=== PATIENT | male | born 1975 | race Caucasian/White ===

== ENCOUNTER 2022-08-26 16:56 | Inpatient (IN) | payer MEDICAID, OTHER ==
[~2022-08-26] VITALS: Ht 182.9 cm; Wt 104.5 kg
[~2022-08-26 16:56] MED LIST: ASPI-41 PO; LISI1TAB51 PO
[2022-08-26 19:31] LABS: BASOPHILS # (AUTO) 0.3 X10'3 (0-0.2); BASOPHILS % (AUTO) 2.5 % (0-1); EOSINOPHILS # (AUTO) 0.2 X10'3 (0-0.9); EOSINOPHILS % (AUTO) 1.9 % (0-6); HEMOGLOBIN 17.1 g/dl (14.0-17.9); LYMPHOCYTES # (AUTO) 3.5 X10'3 (1.1-4.8); LYMPHOCYTES % (AUTO) 33.4 % (21-51); MEAN CORPUSCULAR HGB CONC 36.3 g/dL (33.0-36.5); MEAN CORPUSCULAR VOLUME 96.2 FL (78-98); MEAN PLATELET VOLUME 9.9 FL (7.4-10.4); MONOCYTES # (AUTO) 1.3 X10'3 (0-0.9); MONOCYTES % (AUTO) 12.9 % (2-12); NEUTROPHILS # (AUTO) 5.2 X10'3 (1.8-7.7); NEUTROPHILS % (AUTO) 49.3 % (42-75); PLATELET COUNT 269 X10'3 (140-440); RED BLOOD COUNT 4.89 X10'6 (4.70-6.10); RED CELL DISTRIBUTION WIDTH 13.9 % (11.5-14.5); WHITE BLOOD COUNT 10.4 X10'3 (4.5-11.0)
[2022-08-26 20:00] LABS: ANION GAP 15 (8-16); BLOOD UREA NITROGEN 36 MG/DL (7-18); BUN/CREATININE RATIO 21.2 (10.0-20.0); CHLORIDE 98 MMOL/L (99-107); GLUCOSE 105 MG/DL (70-104); POTASSIUM 4.1 MMOL/L (3.5-5.1); SODIUM 134 MMOL/L (135-145); TOTAL CARBON DIOXIDE 21.2 MMOL/L (24-32); eGFR 43 ML/MIN
[2022-08-26 20:02] LABS: CALCIUM 10.3 MG/DL (8.5-10.1); MAGNESIUM 1.7 MG/DL (1.5-2.4)
[2022-08-26 20:03] LABS: ALANINE AMINOTRANSFERASE 62 U/L (12-78); ALBUMIN 3.9 G/DL (3.4-5.0); ALKALINE PHOSPHATASE 49 IU/L (46-116); ASPARTATE AMINO TRANSFERASE 59 U/L (10-37); BILIRUBIN,TOTAL 0.5 MG/DL (0.1-1.0)
[2022-08-26 20:07] LABS: PLATELET ESTIMATE NORMAL; SMUDGE CELLS FEW; TOTAL CELLS COUNTED 100
[2022-08-26 20:08] LABS: TEAR DROP CELLS FEW
[2022-08-26] MEDS ORDERED: heparin 10,000 units/1 ML INJ IV ONE ×2 (20:10→20:15)
[2022-08-26] MEDS ORDERED: aspirin 81mg tab.chew PO ONE (20:10)
[2022-08-26] MEDS ORDERED: metoprolol tartrate 1mg/ml inj IV ONE (20:15)
[2022-08-26] MEDS ORDERED: iohexol 350MG/ML 100ml bottle IV ONE (20:16)
[2022-08-26] MEDS: heparin 25,000 UNIT/250ml bag 250 ML IV PRN (22:45)
[2022-08-26 23:33] LABS: PARTIAL THROMBOPLASTIN TIME 39.5 SECONDS (24.5-30.9); PROTHROMBIN TIME 12.1 SECONDS (9-12)
[2022-08-27] VITALS (13 sets, daily range): BP systolic 17–178; BP diastolic 92–117
[2022-08-27] MEDS ORDERED: mag hydrox/Alum hydrox/simeth 30ml oral suspension PO PRN (00:20)
[2022-08-27] MEDS ORDERED: potassium Cl 20 mEq SR tablet PO PRN ×2 (00:20)
[2022-08-27] MEDS ORDERED: magnesium Cl slow-release 64mg tablet PO PRN (00:20)
[2022-08-27] MEDS ORDERED: ondansetron/PF 4mg/2ml inj IV PRN (00:20)
[2022-08-27] MEDS ORDERED: magnesium 4gm in 100ml NS 100 ML IV PRN (00:20)
[2022-08-27] MEDS ORDERED: magnesium hydroxide 30ml (MOM) UD suspension PO PRN (00:20)
[2022-08-27] MEDS ORDERED: PERFLUTREN PROTEIN-A MICROSPHR (Optison) 0.22 MG/ML 3ML VIAL IV PRN (00:20)
[2022-08-27] MEDS ORDERED: acetaminophen 325mg tablet PO PRN (00:20)
[2022-08-27] MEDS ORDERED: potassium Cl 40MEQ/1/2NS 520ml 520 ML IV PRN (00:20)
[2022-08-27] MEDS ORDERED: sodium bicarbonate (8.4%) inj. 100 MEQ in dextrose 5%-water 1,000 ML IV SCH (00:25)
[2022-08-27] MEDS ORDERED: LORazepam 2 mg/ml vial IV PRN (00:25)
[2022-08-27] MEDS ORDERED: metoprolol tartrate 50mg tablet PO ONE (00:25)
[2022-08-27] MEDS ORDERED: METO-411 PO (00:43)
[2022-08-27] MEDS: metoprolol tartrate 1mg/ml inj IV SCH ×3 (01:05→02:17)
[2022-08-27] MEDS: heparin 10,000 units/1 ML INJ IV PRN ×2 (02:22→14:42)
[2022-08-27] MEDS: heparin 25,000 UNIT/250ml bag 250 ML IV PRN (02:23)
[2022-08-27] MEDS ORDERED: metoprolol tartrate 1mg/ml inj IV ONE (04:50)
--- NOTE | 2022-08-27 06:30 | NUR ---
Problems reprioritized. Patient report given, questions answered & plan of care reviewed with Oumou MATHIS.
[2022-08-27 07:02] LABS: BASOPHILS # (AUTO) 0.2 X10'3 (0-0.2); EOSINOPHILS # (AUTO) 0.2 X10'3 (0-0.9); HEMOGLOBIN 15.2 g/dl (14.0-17.9)
[2022-08-27 07:04] LABS: BASOPHILS % (AUTO) 2.4 % (0-1); EOSINOPHILS % (AUTO) 1.9 % (0-6); HEMATOCRIT 43.2 % (42.0-52.0); LYMPHOCYTES # (AUTO) 1.4 X10'3 (1.1-4.8); LYMPHOCYTES % (AUTO) 14.7 % (21-51); MEAN CORPUSCULAR HEMOGLOBIN 33.5 PG (27.0-31.0); MEAN CORPUSCULAR HGB CONC 35.2 g/dL (33.0-36.5); MEAN CORPUSCULAR VOLUME 95.4 FL (78-98); MEAN PLATELET VOLUME 7.7 FL (7.4-10.4); MONOCYTES # (AUTO) 1.1 X10'3 (0-0.9); MONOCYTES % (AUTO) 11.1 % (2-12); NEUTROPHILS # (AUTO) 6.9 X10'3 (1.8-7.7); NEUTROPHILS % (AUTO) 69.9 % (42-75); PLATELET COUNT 243 X10'3 (140-440); RED BLOOD COUNT 4.53 X10'6 (4.70-6.10); RED CELL DISTRIBUTION WIDTH 13.5 % (11.5-14.5); WHITE BLOOD COUNT 9.8 X10'3 (4.5-11.0)
--- NOTE | 2022-08-27 07:04 | NUR ---
Paged EKG [id number]. Brendan. STAT EKG for possible heart cath.
--- NOTE | 2022-08-27 07:04 | NUR ---
Rec'd call from Dr Rich. he wants a ekg for poss heart cath. JK, [employer] to evaluate later today. Keep NPO for now.
[2022-08-27 07:17] LABS: MAGNESIUM 1.9 MG/DL (1.5-2.4)
[2022-08-27 07:22] LABS: POTASSIUM 3.9 MMOL/L (3.5-5.1)
[2022-08-27] MEDS: docusate sod 100mg capsule PO SCH ×2 (07:39→20:00)
[2022-08-27 07:46] LABS: TOTAL CELLS COUNTED 100
[2022-08-27 07:48] LABS: LARGE PLATELETS FEW; PLATELET ESTIMATE NORMAL
[2022-08-27] MEDS ORDERED: LISI1TAB51 PO (07:49)
[2022-08-27] MEDS: K and/or MAG REPLACEMENT MC SCH ×2 (08:00→20:00)
[2022-08-27] MEDS ORDERED: losartan 50mg tablet PO SCH (08:25)
[2022-08-27] MEDS ORDERED: metoprolol succinate 25mg (24-HOUR) SR. Tablet PO SCH ×2 (08:25→08:35)
[2022-08-27] MEDS: aspirin 81mg tab.chew PO SCH ×2 (08:30→09:18)
[2022-08-27] MEDS ORDERED: HYDROchlorothiazide 12.5mg capsule PO SCH (08:42)
[2022-08-27] MEDS: atorvastatin 20mg tablet PO SCH (09:18)
[2022-08-27] MEDS ORDERED: acetylcysteine 200 MG/ml 4ml vial PO SCH (09:50)
[2022-08-27 10:04] LABS: CHOL/HDL RATIO 9.4 (0.00-4.99); CHOLESTEROL 462 MG/DL (0-200); HDL CHOLESTEROL 49 MG/DL (35-60); LDL CHOLESTEROL 133 MG/DL (50-100)
[2022-08-27 10:11] LABS: ALBUMIN 3.5 G/DL (3.4-5.0); ANION GAP 16 (8-16); BLOOD UREA NITROGEN 35 MG/DL (7-18); BUN/CREATININE RATIO 19.9 (10.0-20.0); CALCIUM 9.5 MG/DL (8.5-10.1); CHLORIDE 98 MMOL/L (99-107); CREATININE 1.76 MG/DL (0.60-1.10); GLUCOSE 116 MG/DL (70-104); SODIUM 136 MMOL/L (135-145); TOTAL CARBON DIOXIDE 21.6 MMOL/L (24-32); eGFR 42 ML/MIN
[2022-08-27 10:14] LABS: TRIGLYCERIDES 1135 MG/DL (20-135)
[2022-08-27] MEDS ORDERED: normal saline 1000ml 1,000 ML IV SCH (11:00)
[2022-08-27] MEDS: fenofibrate 145mg tablet PO SCH (11:39)
[2022-08-27] MEDS ORDERED: nitroGLYCERIN-Tridil 50MG/D5W 250 ML IV ONE (16:01)
[2022-08-27] MEDS ORDERED: midazolam 1 mg/ML 2ml injection ONE (16:02)
[2022-08-27] MEDS ORDERED: fentaNYL/PF 50MCG/1 ML 2ML syringe ONE (16:02)
[2022-08-27] MEDS ORDERED: verapamil 2.5 mg/ml inj IV ONE (16:02)
[2022-08-27] MEDS ORDERED: iohexol 350MG/ML 100ml bottle IV ONE ×2 (16:02→16:53)
[2022-08-27] MEDS ORDERED: heparin 1,000unit/ml 10ml vial 10 ML ONE (16:02)
[2022-08-27] MEDS ORDERED: LIDOcaine 1% (10mg/ml) 2ml vial ONE (16:02)
--- NOTE | 2022-08-27 16:19 | NUR ---
pt to home performance laborer
[2022-08-27] MEDS ORDERED: aspirin 325mg tablet ONE (16:50)
[2022-08-27] MEDS ORDERED: ticagrelor 90mg tablet ONE (16:50)
[2022-08-27] MEDS: normal saline 1000ml 1,000 ML IV SCH ×3 (17:47→21:12)
[2022-08-27] MEDS ORDERED: HYDROcodone/acetaminophen 5mg/325mg tablet PO PRN (18:00)
[2022-08-27] MEDS ORDERED: HYDROcodone/acetaminophen 10/325mg tab PO PRN (18:00)
[2022-08-27] MEDS: carVEDilol 12.5mg tablet PO SCH (18:04)
[2022-08-27] MEDS: lisinopril 20mg tablet PO SCH (19:40)
[2022-08-28] VITALS: BP 138/111
[2022-08-28 04:00] VITALS: BP 153/95
--- NOTE | 2022-08-28 06:17 | NUR ---
Problems reprioritized. Patient report given, questions answered & plan of care reviewed with Renetta MATHIS.
[2022-08-28 07:44] LABS: BASOPHILS # (AUTO) 0.1 X10'3 (0-0.2); EOSINOPHILS # (AUTO) 0.1 X10'3 (0-0.9); EOSINOPHILS % (AUTO) 2.3 % (0-6); HEMATOCRIT 38.9 % (42.0-52.0); HEMOGLOBIN 13.5 g/dl (14.0-17.9); LYMPHOCYTES # (AUTO) 1.4 X10'3 (1.1-4.8); LYMPHOCYTES % (AUTO) 21.5 % (21-51); MEAN CORPUSCULAR HEMOGLOBIN 33.2 PG (27.0-31.0); MEAN CORPUSCULAR HGB CONC 34.6 g/dL (33.0-36.5); MEAN CORPUSCULAR VOLUME 95.8 FL (78-98); MEAN PLATELET VOLUME 7.8 FL (7.4-10.4); MONOCYTES # (AUTO) 0.6 X10'3 (0-0.9); MONOCYTES % (AUTO) 9.4 % (2-12); NEUTROPHILS # (AUTO) 4.2 X10'3 (1.8-7.7); NEUTROPHILS % (AUTO) 65.8 % (42-75); PLATELET COUNT 221 X10'3 (140-440); RED BLOOD COUNT 4.06 X10'6 (4.70-6.10); RED CELL DISTRIBUTION WIDTH 13.3 % (11.5-14.5); WHITE BLOOD COUNT 6.4 X10'3 (4.5-11.0)
[2022-08-28] MEDS ORDERED: ticagrelor 90mg tablet PO SCH (08:00)
[2022-08-28] MEDS ORDERED: non-formulary drug (Metoprolol Succinate 1 TAB) PO SCH (08:00)
[2022-08-28 08:15] LABS: CHOLESTEROL 415 MG/DL (0-200); LDL CHOLESTEROL 139 MG/DL (50-100); TOTAL CARBON DIOXIDE 22.9 MMOL/L (24-32)
[2022-08-28 09:06] LABS: ALANINE AMINOTRANSFERASE 45 U/L (12-78); ALBUMIN 3.1 G/DL (3.4-5.0); ALKALINE PHOSPHATASE 38 IU/L (46-116); ANION GAP 10 (8-16); ASPARTATE AMINO TRANSFERASE 43 U/L (10-37); BILIRUBIN,TOTAL 0.5 MG/DL (0.1-1.0); BLOOD UREA NITROGEN 24 MG/DL (7-18); BUN/CREATININE RATIO 16.9 (10.0-20.0); CALCIUM 8.4 MG/DL (8.5-10.1); CHLORIDE 104 MMOL/L (99-107); CREATININE 1.42 MG/DL (0.60-1.10); GLUCOSE 104 MG/DL (70-104); MAGNESIUM 1.7 MG/DL (1.5-2.4); SODIUM 137 MMOL/L (135-145); TOTAL PROTEIN 6.3 G/DL (6.4-8.2); eGFR 53 ML/MIN
[2022-08-28 09:09] LABS: CHOL/HDL RATIO 12.2 (0.00-4.99); HDL CHOLESTEROL 34 MG/DL (35-60); TRIGLYCERIDES 1899 MG/DL (20-135)
[2022-08-28] MEDS: carVEDilol 12.5mg tablet PO SCH (09:50)
[2022-08-28] MEDS: atorvastatin 20mg tablet PO SCH (09:51)
[2022-08-28] MEDS: aspirin 81mg tab.chew PO SCH (09:52)
[2022-08-28] MEDS: fenofibrate 145mg tablet PO SCH (09:52)
[2022-08-28 09:55] VITALS: BP_SYST 165
[2022-08-28] MEDS: lisinopril 20mg tablet PO SCH (09:55)
[2022-08-28] MEDS ORDERED: CARV-50 PO (12:18)
[2022-08-28] MEDS ORDERED: FENO145T25 PO (12:18)
[2022-08-28] MEDS ORDERED: ATOR20TA66 PO (12:18)
[2022-08-28] MEDS ORDERED: MULT-1085 PO (12:18)
[2022-08-28] MEDS ORDERED: ASPI81TA53 PO (12:18)
[2022-08-28] MEDS ORDERED: THIA50TA10 PO (12:18)
[2022-08-28] MEDS ORDERED: FOLI0.4T6 PO (12:18)
[2022-08-28] MEDS ORDERED: TICA90TA PO (12:20)
[2022-08-28] MEDS ORDERED: ALBU6.7H14 INH (14:47)
--- NOTE | 2022-08-28 17:56 | NUR ---
Pt stable for discharge per Dr. Flores and cardiology. All discharge instructions reviewed with patient and all questions answered, pt verbalized understanding. New medications e-scripted to tonia mccain. PIV discontinued, cannula intact. Tele discontinued. All belongings collected and sent with patient. Wheeled to lobby via nursing staff and picked up by spouse.
[2022-08-29] MEDS ORDERED: LORazepam 2 mg/ml vial IV PRN (00:25)
[2022-08-29] MEDS ORDERED: LORazepam 1 MG tablet PO PRN (00:25)
[2022-08-31] MEDS ORDERED: LORazepam 1 MG tablet PO PRN (00:25)
[2022-08-31] MEDS ORDERED: thiamine 100mg tablet PO SCH (08:00)
== END 2022-08-28 12:20 | disposition home or self-care (01) | DRG 174 ==
LOC: ER 16:57 → ED HOLD 08-27 00:22 → PCU 3S 08-27 02:44
PROVIDERS: ADMIT Internal Medicine; ATTEND Family Medicine
PROC: B32T1ZZ Computerized Tomography (CT Scan) of Left Pulmonary Artery using Low Osmolar Contrast (ICD-10-PCS; 2022-08-26)
PROC: B3201ZZ Computerized Tomography (CT Scan) of Thoracic Aorta using Low Osmolar Contrast (ICD-10-PCS; 2022-08-26)
PROC: B32S1ZZ Computerized Tomography (CT Scan) of Right Pulmonary Artery using Low Osmolar Contrast (ICD-10-PCS; 2022-08-26)
PROC: 027034Z Dilation of Coronary Artery, One Artery with Drug-eluting Intraluminal Device, Percutaneous Approach (ICD-10-PCS; principal; 2022-08-27)
PROC: 4A023N7 Measurement of Cardiac Sampling and Pressure, Left Heart, Percutaneous Approach (ICD-10-PCS; 2022-08-27)
PROC: B2111ZZ Fluoroscopy of Multiple Coronary Arteries using Low Osmolar Contrast (ICD-10-PCS; 2022-08-27)
DX: I21.4 Non-ST elevation (NSTEMI) myocardial infarction (principal); N17.0 Acute kidney failure with tubular necrosis; F10.20 Alcohol dependence, uncomplicated; G89.29 Other chronic pain; I12.9 Hypertensive chronic kidney disease with stage 1 through stage 4 chronic kidney disease, or unspecified chronic kidney disease; F12.90 Cannabis use, unspecified, uncomplicated; I25.10 Atherosclerotic heart disease of native coronary artery without angina pectoris; R79.89 Other specified abnormal findings of blood chemistry; F11.20 Opioid dependence, uncomplicated; M17.0 Bilateral primary osteoarthritis of knee; N18.30 Chronic kidney disease, stage 3 unspecified; Z79.82 Long term (current) use of aspirin; Z79.899 Other long term (current) drug therapy; Z82.49 Family history of ischemic heart disease and other diseases of the circulatory system; Z82.3 Family history of stroke; Z87.891 Personal history of nicotine dependence; Z71.41 Alcohol abuse counseling and surveillance of alcoholic
CPT/HCPCS: 36415; 71045; 71275; 80048; 80053; 80061; 83036; 83735; 83880; 84484; 85007; 85025; 85730; 87081; 93005; 93306; 93458; 99152; 99153; 99285; A6258; C1725; C1751; C1769; C1874; C1894; C9600; G0378; J1644; J2060; J2250; J3010; J3490; J7030; J7040; J7070; Q9967

== ENCOUNTER → 2024-05-22 | Emergency (ER) | payer MEDICAID ==
[~2024-05-22] VITALS: Ht 182.9 cm; Wt 100.0 kg
[~2024-05-22] MED LIST changes: +ALBU6.7H14 INH; -ASPI-41 PO; +ASPI81TA53 PO; +ATOR20TA66 PO; +CARV-50 PO; +FENO145T25 PO; +MULT-1085 PO; +THIA50TA10 PO; +TICA90TA PO
[2024-05-22 14:50] VITALS: BP 170/87; PULSE 92; RESP 16; TEMP 98.1; O2SAT 98
== END | disposition home or self-care (01) ==
LOC: ER 14:42
DX: S92.355A Nondisplaced fracture of fifth metatarsal bone, left foot, initial encounter for closed fracture (principal); S92.342A Displaced fracture of fourth metatarsal bone, left foot, initial encounter for closed fracture; I10 Essential (primary) hypertension; F12.90 Cannabis use, unspecified, uncomplicated; Z79.82 Long term (current) use of aspirin; Z79.899 Other long term (current) drug therapy; X58.XXXA Exposure to other specified factors, initial encounter; Y93.01 Activity, walking, marching and hiking; Y92.89 Other specified places as the place of occurrence of the external cause; Y99.8 Other external cause status
CPT/HCPCS: 73630; 99283; L4360

== ENCOUNTER 2024-06-02 10:26 | Day surgery (SDC) | payer MEDICAID ==
[~2024-06-02] VITALS: Ht 182.9 cm; Wt 104.8 kg
[2024-06-02] VITALS (11 sets, daily range): BP systolic 93–154; BP diastolic 64–98; PULSE 64–81; RESP 16; TEMP 98; O2SAT 91–99
[2024-06-02] MEDS ORDERED: nitroGLYCERIN 0.4mg SUBLingual tab SL PRN (10:45)
[2024-06-02 11:15] LABS: BASOPHILS # (AUTO) 0.1 X10'3 (0-0.2); BASOPHILS % (AUTO) 1.4 % (0-1); EOSINOPHILS # (AUTO) 0.3 X10'3 (0-0.9); EOSINOPHILS % (AUTO) 3.8 % (0-6); HEMATOCRIT 39.6 % (42.0-52.0); HEMOGLOBIN 13.7 g/dl (14.0-17.9); LYMPHOCYTES # (AUTO) 1.6 X10'3 (1.1-4.8); LYMPHOCYTES % (AUTO) 20.6 % (21-51); MEAN CORPUSCULAR HGB CONC 34.6 g/dL (33.0-36.5); MEAN CORPUSCULAR VOLUME 92.7 FL (78-98); MEAN PLATELET VOLUME 6.6 FL (7.4-10.4); MONOCYTES # (AUTO) 0.6 X10'3 (0-0.9); MONOCYTES % (AUTO) 8.2 % (2-12); NEUTROPHILS # (AUTO) 5.1 X10'3 (1.8-7.7); PLATELET COUNT 363 X10'3 (140-440); RED BLOOD COUNT 4.27 X10'6 (4.70-6.10); RED CELL DISTRIBUTION WIDTH 12.9 % (11.5-14.5); WHITE BLOOD COUNT 7.7 X10'3 (4.5-11.0)
[2024-06-02] MEDS ORDERED: METO-411 PO (11:21)
[2024-06-02] MEDS ORDERED: ATOR-2 PO (11:21)
[2024-06-02] MEDS ORDERED: AMLO-381 PO (11:21)
[2024-06-02] MEDS ORDERED: CLOP75TA34 PO (11:21)
[2024-06-02] MEDS ORDERED: EVOL140S2 SQ (11:21)
[2024-06-02] MEDS ORDERED: EZET10TA48 PO (11:21)
[2024-06-02 11:22] LABS: ALBUMIN 3.9 G/DL (3.4-5.0); ANION GAP 11 (8-16); BLOOD UREA NITROGEN 25 MG/DL (7-18); BUN/CREATININE RATIO 17.7 (10.0-20.0); CALCIUM 9.3 MG/DL (8.5-10.1); CHLORIDE 107 MMOL/L (99-107); CREATININE 1.41 MG/DL (0.60-1.10); GLUCOSE 98 MG/DL (70-104); POTASSIUM 4.1 MMOL/L (3.5-5.1); SODIUM 142 MMOL/L (135-145); TOTAL CARBON DIOXIDE 24.1 MMOL/L (24-32); eGFR 53 ML/MIN
[2024-06-02] MEDS ORDERED: LORA-641 (11:36)
[2024-06-02] MEDS ORDERED: FOLI0.4T14 PO (11:36)
[2024-06-02] MEDS ORDERED: POTASSIUM PO (11:36)
[2024-06-02] MEDS ORDERED: OMEG100037 PO (11:36)
[2024-06-02] MEDS: diphenhydrAMINE 25mg capsule PO PRN (11:43)
[2024-06-02] MEDS: LORazepam 0.5 MG tablet PO PRN (11:43)
[2024-06-02] MEDS: normal saline 1,000 ML IV SCH (11:45)
[2024-06-02 11:49] LABS: APTT 30 SECONDS (22-32); PROTHROMBIN TIME 10.5 SECONDS (9.0-12.0)
[2024-06-02] MEDS ORDERED: LIDOcaine 1% 30ml preserv. free vial ONE (11:49)
[2024-06-02] MEDS ORDERED: iohexol 350MG/ML 100ml bottle IV ONE (11:49)
[2024-06-02] MEDS ORDERED: midazolam 1 mg/ML 2ml injection ONE ×2 (11:49→12:12)
[2024-06-02] MEDS ORDERED: fentaNYL/PF 50MCG/1 ML 2ML syringe ONE (11:49)
[2024-06-02] MEDS ORDERED: iohexol 350 MG/ML 50ML vial IV ONE (11:49)
[2024-06-02] MEDS ORDERED: proCHLORperazine 10 MG/2 ml inj ONE (12:15)
[2024-06-02] MEDS ORDERED: OXAZEpam 15mg capsule PO PRN (13:10)
[2024-06-02] MEDS ORDERED: HYDROcodone/acetaminophen 5mg/325mg tablet PO PRN (13:10)
[2024-06-02] MEDS ORDERED: normal saline 1000ml 1,000 ML IV SCH (13:10)
[2024-06-02] MEDS ORDERED: ondansetron/PF 4mg/2ml inj IV PRN (13:10)
[2024-06-02] MEDS ORDERED: proCHLORperazine 10 MG/2 ml inj IV PRN (13:10)
[2024-06-02] MEDS ORDERED: HYDROcodone/acetaminophen 10/325mg tab PO PRN (13:10)
== END 2024-06-02 18:15 | disposition home or self-care (01) ==
LOC: SSTAY O 10:26
PROVIDERS: ATTEND Internal Medicine Cardiovascular Disease
DX: R94.39 Abnormal result of other cardiovascular function study (principal); I25.10 Atherosclerotic heart disease of native coronary artery without angina pectoris; I25.82 Chronic total occlusion of coronary artery; I25.2 Old myocardial infarction; Z79.01 Long term (current) use of anticoagulants; Z79.899 Other long term (current) drug therapy
CPT/HCPCS: 36415; 71046; 80048; 85025; 85610; 85730; 93005; 93458; 99152; J0780; J1644; J2003; J2250; J3010; J7030; Q0163; Q9967; 99153; A6258; A6449; C1760